=== PATIENT | male | born 1950 | race Caucasian/White ===

== ENCOUNTER 2020-10-10 14:03 | Inpatient (IN) | payer MEDICARE ==
[~2020-10-10] VITALS: Ht 175.3 cm; Wt 92.1 kg
[2020-10-10 15:04] LABS: HEMOGLOBIN 16.7 gm/dl (14.0-17.5); RED BLOOD COUNT 5.34 M/UL (4.20-5.50); WHITE BLOOD COUNT 6.4 K/UL (4.5-11.0)
[2020-10-10 16:17] LABS: BUN/CREATININE RATIO 14 (0-10)
[2020-10-10 19:00] LABS: BUN/CREATININE RATIO 14 (0-10)
[2020-10-11 05:15] LABS: HEMOGLOBIN 16.7 gm/dl (14.0-17.5); RED BLOOD COUNT 5.32 M/UL (4.20-5.50)
[2020-10-11] MEDS ORDERED: GLUCOPHAGE 850850 MG PO (06:49)
[2020-10-11] MEDS ORDERED: NEURONTIN300 MG PO (06:49)
[2020-10-11] MEDS ORDERED: INVOKANA300 MG PO (06:49)
[2020-10-11] MEDS ORDERED: LEVEMIR FL100 UNIT/1 SQ (06:50)
[2020-10-11 08:08] LABS: ACINETOBACTER BAUMANNII Not Detected (Negative); CANDIDA ALBICANS Not Detected (Negative); CANDIDA KRUSEI Not Detected (Negative); CANDIDA TROPICALIS Not Detected (Negative); ENTEROCOCCUS Not Detected (Negative); ESCHERICHIA COLI Not Detected (Negative); HAEMOPHILUS INFLUENZAE Not Detected (Negative); KLEBSIELLA OXYTOCA Not Detected (Negative); KLEBSIELLA PNEUMONIAE Not Detected (Negative); KPC-CARBAPENEM-RESISTANCE GENE Not Detected (Negative); PROTEUS Not Detected (Negative); PSEUDOMONAS AERUGINOSA Not Detected (Negative); SERRATIA MARCESANS Not Detected (Negative); STAPHYLOCOCCUS AUREUS Not Detected (Negative); STREP AGALACTIAE (GROUP B) Not Detected (Negative); STREP PYOGENES (GROUP A) Not Detected (Negative); STREPTOCOCCUS Not Detected (Negative); vanA/B (VANCOMYCIN RESIST GENE Not Detected (Negative)
[2020-10-11 09:22] LABS: STAPHYLOCOCCUS DETECTED (Negative); mecA (METHICILLIN RESIST GENE DETECTED (Negative)
[2020-10-12 03:13] LABS: HEMOGLOBIN 14.4 gm/dl (14.0-17.5); RED BLOOD COUNT 4.64 M/UL (4.20-5.50); WHITE BLOOD COUNT 7.9 K/UL (4.5-11.0)
[2020-10-13 03:59] LABS: HEMOGLOBIN 14.6 gm/dl (14.0-17.5); RED BLOOD COUNT 4.69 M/UL (4.20-5.50); WHITE BLOOD COUNT 7.8 K/UL (4.5-11.0)
[2020-10-13 13:14] LABS: ORGANISM ID Not indicated. (.); SPECIMEN SOURCE Urine (.); STREPTOCOCCUS PNEUMONIAE AG Negative (Negative)
[2020-10-14 06:45] LABS: HEMOGLOBIN 15.4 gm/dl (14.0-17.5); RED BLOOD COUNT 4.99 M/UL (4.20-5.50)
[2020-10-14 06:48] LABS: WHITE BLOOD COUNT 5.4 K/UL (4.5-11.0)
[2020-10-15 06:34] LABS: HEMOGLOBIN 15.4 gm/dl (14.0-17.5); RED BLOOD COUNT 4.98 M/UL (4.20-5.50); WHITE BLOOD COUNT 5.7 K/UL (4.5-11.0)
[2020-10-15 07:05] LABS: BUN/CREATININE RATIO 15 (0-10)
[2020-10-15] MEDS ORDERED: AMLODIPINE BESYL5 MG PO (10:01)
[2020-10-15] MEDS ORDERED: LANTUS INS100 UTS/M1 SQ (10:01)
[2020-10-15] MEDS ORDERED: KEPPRA500 MG PO (10:02)
== END 2020-10-15 11:00 | disposition home or self-care (01) | DRG 637 ==
LOC: ER1 14:03 → CDU 17:00 → CCU 17:00 → PROG CARE 17:00 → CCU 22:05 → PROG CARE 10-11 12:50 → M/S 10-12 21:58
PROVIDERS: Emergency Medicine; ADMIT Internal Medicine
DX: E11.00 Type 2 diabetes mellitus with hyperosmolarity without nonketotic hyperglycemic-hyperosmolar coma (NKHHC) (principal); G93.41 Metabolic encephalopathy; J15.9 Unspecified bacterial pneumonia; N17.9 Acute kidney failure, unspecified; N39.0 Urinary tract infection, site not specified; R78.81 Bacteremia; E11.65 Type 2 diabetes mellitus with hyperglycemia; E78.5 Hyperlipidemia, unspecified; E83.39 Other disorders of phosphorus metabolism; G40.909 Epilepsy, unspecified, not intractable, without status epilepticus; N18.30 Chronic kidney disease, stage 3 unspecified; E11.22 Type 2 diabetes mellitus with diabetic chronic kidney disease; E87.6 Hypokalemia; N28.1 Cyst of kidney, acquired; I12.9 Hypertensive chronic kidney disease with stage 1 through stage 4 chronic kidney disease, or unspecified chronic kidney disease; B95.7 Other staphylococcus as the cause of diseases classified elsewhere; Z86.16 Personal history of COVID-19; Z86.73 Personal history of transient ischemic attack (TIA), and cerebral infarction without residual deficits; Z83.3 Family history of diabetes mellitus; Z82.49 Family history of ischemic heart disease and other diseases of the circulatory system; Z83.438 Family history of other disorder of lipoprotein metabolism and other lipidemia; Z87.891 Personal history of nicotine dependence; Z88.8 Allergy status to other drugs, medicaments and biological substances; Z79.4 Long term (current) use of insulin; Z79.899 Other long term (current) drug therapy
CPT/HCPCS: ECHO; 36415; 36600; 70450; 70551; 71045; 80048; 80053; 80202; 80307; 81001; 82009; 82140; 82550; 82553; 82570; 82607; 82803; 82962; 83036; 83605; 83735; 83874; 83880; 84100; 84133; 84156; 84300; 84439; 84443; 84484; 85025; 85027; 86140; 87040; 87070; 87077; 87086; 87150; 87186; 87205; 87278; 87899; 89050; 93005; 93306; 94640; 94760; 95816; 96374; 96375; 99285; J0360; J0692; J0696; J1630; J1650; J1953; J2060; J2270; J2543; J3370; J3480; J7030; J7040; J7070; P9047; U0002